=== PATIENT | male | born 1980 | race Caucasian/White ===

== ENCOUNTER 2019-05-11 13:23 | Emergency (ER) | payer OTHER, SELFPAY ==
[2019-05-11 13:25] VITALS: BP 136/92; PULSE 91; RESP 16; TEMP 36.6; O2SAT 97; BMI 26.3
--- NOTE | 2019-05-11 13:35 | RAD_ITS ---
STUDY: X-RAY - LEFT HAND, ATTENTION LEFT THUMB. REASON FOR EXAM: Male, 38 years old. Injury to the distal aspect of the thumb. TECHNIQUE: 3 view(s) of the finger were obtained. COMPARISON: None. FINDINGS: Normal metacarpal head. Normal metacarpophalangeal joint. Normal proximal phalanx. Normal distal phalanx. Normal distal interphalangeal joint. Soft tissue injury and partial amputation overlying the distal phalanx of the thumb. RAD/Finger(s) Min 2 Views IMPRESSION: No bony abnormality is seen. Soft tissue amputation overlying the distal portion of the distal phalanx of the thumb. Electronically Signed: Blaine Agee, at 14:04 EDT , Service support ,
--- NOTE | 2019-05-11 15:10 | ED.DCSUM_ITS ---
- ER Visit Summary Date of Service: 05/11/19 Chief Complaint: Trauma to left thumb History of Present Illness: The patient is a [address] Cortes. He is right-hand dominant. 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 His tetanus is up-to-date. He reports that just prior to coming emergency department he caught his left thumb and a piece of machinery. He has a sharp pain is 10-10 with moving it at 10 at rest. He denies any other injuries or complaints. Physical Examination: Vitals: Stable. Afebrile. General: Well-nourished and well-developed. Head: Normocephalic atraumatic. Neck: Supple, no lymphadenopathy. No JVD. Nontender. Cardiovascular: Regular rate and rhythm. No murmurs. Respiratory: No respiratory distress. Clear to auscultation bilaterally. Abdominal: Soft, nontender, nondistended, normal bowel sounds. No guarding, rebound, or peritoneal signs. Back: Nontender. Extremities: Left thumb: The distal third of the nailbed is amputated. The nail is avulsed. There is no skin for coverage. Skin: Normal color, no rash. Neurologic: Alert and oriented ?3. Cranial nerves II through XII are intact. Normal strength and sensation. Psych: Normal affect. Test Results: Clinical Impression(s) from Imaging Studies Finger X-Ray 05/11/19 13:35 IMPRESSION: No bony abnormality is seen. Soft tissue amputation overlying the distal portion of the distal phalanx of the thumb. Electronically Signed: Blaine Cyndie, at 14:04 EDT , Service support , Emergency Department Course and Treatment: Patient had a digital block performed and was treated with Keflex. He had a dressing placed was placed in AlumaFoam splint. Treatment Plan: The patient was discussed with Dr. Galaviz. She did offer to care for this, but it would require amputation at the PIP joint. Patient understands that he could be transferred to see a hand surgeon to potentially salvage length to his thumb. He would prefer to do this. 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 He was then discussed with Dr. Grewal at [facility], his hospital of choice, and he asked that the wound be irrigated and he will take him to the operating room tomorrow. The patient is happy with this plan. Disposition: To home in improved and stable condition. Impression: 1. Left thumb fingertip amputation. Procedure note: Patient had his thumb anesthetized with a digital block with bupivacaine. It was washed with chlorhexidine soap. It was then irrigated with 250 cc of normal saline. Xeroform gauze was used to cover this. A bulky dressing with Kerlix was then placed. The patient tolerated this well. This note was generated with [employer] dictation software. It may contain incorrect words, spelling, and punctuation that were not noted in review of the chart prior to signing ED Disposition - Plan for ED Patient: Instructions: FINGER TIP AMPUTATION, Open Treatment Prescriptions: Cefadroxil [Duricef] 500 mg PO BID #14 capsule Oxycodone HCl/Acetaminophen [Percocet 5/325] 1 tablet PO Q6H PRN PRN 5 Days #20 tablet PRN Reason: Pain Additional Instructions: Dr. Grewal has you scheduled for surgery tomorrow morning at 9:30. The address for the [facility] is [address] [place] [address]. Do not eat or drink anything after midnight. The number to Dr. Grewal office is .
[2019-05-11] MEDS: oxyCODONE 5 MG Tablet 10 MG PO (16:02)
[2019-05-11] MEDS: Cephalexin 500 MG Capsule PO (16:03)
[2019-05-11] MEDS: Bupivacaine Mpf 0.5% 30 ML VIAL INFILT (16:06)
[2019-05-11 17:39] VITALS: BP 136/70; PULSE 61; RESP 14
== END 2019-05-11 17:41 | disposition home or self-care (01) ==
PROVIDERS: Emergency Provider Emergency Medicine; Family Provider Internal Medicine; PCP Internal Medicine
DX: S68.022A Partial traumatic metacarpophalangeal amputation of left thumb, initial encounter (principal); W31.9XXA Contact with unspecified machinery, initial encounter; Y93.9 Activity, unspecified; Y92.89 Other specified places as the place of occurrence of the external cause; Y99.0 Civilian activity done for income or pay; Z72.0 Tobacco use
CPT/HCPCS: 73140; 99283

== ENCOUNTER 2019-06-18 17:08 | Emergency (ER) | payer SELFPAY ==
[2019-06-18 17:09] VITALS: BP 181/101; PULSE 103; PULSE 106; RESP 22; TEMP 36.4; O2SAT 95; BMI 27.7
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
--- NOTE | 2019-06-18 17:25 | NURSING ---
CALLED [facility] FOR TRAUMA TRANSFER TO [place]. TALKED TO DEEDEE
[2019-06-18] MEDS: fentaNYL 100 MCG/2 ML Ampul 50 MCG IV (17:28)
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
--- NOTE | 2019-06-18 17:37 | NURSING ---
ACCEPTED AT [facility] ACCEPTING DR BRAN RODRIGUES NURSE TO NURSE WAS THE TRANSFER LINE AT [phone]
[2019-06-18] MEDS: Cefazolin 1 GM/50 ML BAG IV (17:44)
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
--- NOTE | 2019-06-18 17:48 | NURSING ---
CALLED [facility] FOR TRANSPORT. ETA IS 45 TO 60 MIN
[2019-06-18 18:16] VITALS: BP 151/99; PULSE 108; RESP 18; O2SAT 95
== END 2019-06-18 18:20 | disposition short-term general hospital (02) ==
PROVIDERS: Emergency Provider Emergency Medicine; Family Provider Internal Medicine; PCP Internal Medicine
DX: S06.0X0A Concussion without loss of consciousness, initial encounter (principal); S01.81XA Laceration without foreign body of other part of head, initial encounter; S00.81XA Abrasion of other part of head, initial encounter; S20.419A Abrasion of unspecified back wall of thorax, initial encounter; S40.812A Abrasion of left upper arm, initial encounter; S40.811A Abrasion of right upper arm, initial encounter; S80.812A Abrasion, left lower leg, initial encounter; S80.811A Abrasion, right lower leg, initial encounter; V86.56XA Driver of dirt bike or motor/cross bike injured in nontraffic accident, initial encounter; Y93.I9 Activity, other involving external motion; Y92.410 Unspecified street and highway as the place of occurrence of the external cause; Y99.8 Other external cause status; Z72.0 Tobacco use
CPT/HCPCS: 71045; 72170; 96365; 96375; 99284; J7030; J7050; A4216

== ENCOUNTER 2020-05-06 19:20 | Emergency (ER) | payer MEDICAID, SELFPAY ==
[2020-05-06 19:21] VITALS: BP 135/80; PULSE 103; RESP 18; TEMP 37.2; O2SAT 97; BMI 27.2
--- NOTE | 2020-05-06 19:25 | ED.RN ---
pt taking nonsense. Everytime this nurse tries to ask a question patient will start talking over and not answer questions. hard to assess. upset when staff attempted to calm down and put hand on shoulder. pt said that is how you piss me off. refused to put wrist band on.
--- NOTE | 2020-05-06 19:45 | EKG12_ITS ---
Test Reason : MENTAL HEALTH Blood Pressure : / mmHG Vent. Rate : 082 BPM Atrial Rate : 082 BPM P-R Int : 138 ms QRS Dur : 102 ms QT Int : 386 ms P-R-T Axes : 086 079 082 degrees QTc Int : 450 ms Normal sinus rhythm Normal ECG Confirmed by MARTINEZ CHURCH, KEYONA ([id number]), material expeditor SAMEER BENNETT ([id number]) on 05/10/2020 1:09:01 PM Referred By: TAYLOR Confirmed By:KEYONA HENRIQUEZ MD
--- NOTE | 2020-05-06 19:52 | ED.DCSUM_ITS ---
- ER Visit Summary Date of Service: 05/06/20 Chief Complaint: Abnormal behavior History of Present Illness: The patient is a 39 M who presents with abnormal behavior that was noticed today. Apparently the patient had similar symptoms a couple days ago and his mom was willing to take him home and monitor him. Today however he became worse. Patient has a history of schizophrenia and has been noncompliant with his medications. Patient is a very poor historian. Patient appears to be talking to another person in the room that is not there. Patient refuses to answer any of my questions. Patient will not talk to me. Physical Examination: Vital signs are stable. Patient is afebrile. Patient is in no acute distress. Patient is sitting comfortably in the room. Patient appears to have auditory hallucinations. Patient is talking to another person even though there is no one else in the room. Patient will not answer any questions. Patient will not admit to or deny any suicidal ideations or homicidal ideations. Patient appears to be agitated and angry. Test Results: EKG showed normal sinus rhythm with a rate of 82. There are no acute ST or T wave changes. CBC was normal. Comprehensive metabolic profile showed a potassium of 3.0 but was otherwise within normal limits. Serum alcohol level was normal. Urine tox screen is pending. Emergency Department Course and Treatment: Patient was given injections of Ativan and Haldol. Patient was still agitated and attempted to leave the emergency department. Patient was restrained. Patient was given injection of Geodon. Patient is resting comfortably. general utility worker was unable to evaluate the patient and talk with him. When the patient is more awake, crisis will evaluate the patient. Disposition: Care of the patient was turned over to the oncoming physician. Patient will likely be transferred to psychiatric facility Impression: 1. Acute psychosis 2. Schizophrenia This note was generated with [employer] software. It may contain incorrect words, spelling, and punctuation that were not noted in review of the chart prior to signing ED Disposition - Plan for ED Patient: Diagnosis: Acute psychosis, Schizophrenia Referrals: Coretta Cortes MD [Primary Care Provider] -
[2020-05-06] MEDS: LORazepam 2 MG/ML Syringe IV (19:55)
[2020-05-06] MEDS: Haloperidol Lactate 5 MG/ML Vial 2 MG IM (19:55)
--- NOTE | 2020-05-06 19:56 | CM.ED ---
Social Work Consult: Mental Health Informant: Dr. Sanchez Met with patient in room to attempt to complete assessment. While this social group worker entered the room patient states I don't want to live in the past, I want to live in the future. This social group worker attempted to introduce self and social group worker role. Patient continues to speak nonsensical. Patient states I'm retired f you. This social group worker attempted to speak directly with patient, patient continues to not make eye contact or acknowledge this social group worker in the room. Patient then stands up and attempts to leave the room. This social group worker attempts to redirect patient, nursing staff then speaks with patient along with Azalea ANDERSON. Patient then goes back into room after multiple directions given to do so. Patient is pink slipped by Azalea ANDERSON to [facility]. Per [place] ANDERSON patient has been ramping up over the past few days. Apparently patient was wondering yesterday and police had to escort patient back to patient mother's home, where patient lives. Patient mother then took responsibility for patient. Azalea ANDERSON stating that patient mother called police today as patient was getting worse. Azalea ANDERSON reporting that patient has diagnosis of Schizophrenia and Bi-polar. Per medical chart patient is noted to have Klonopin and Seroquel on medication list. Patient continues with nonsensical statements and then states I need to do a push-up and gets down and does a push-up. Medical team able to direct patient into bed. Collaborated with Dr. Sanchez. Dr. Sanchez also states that patient did not answer any direct questions. When medical team attempts to medication patient via injection patient states pock my finger tips, I need air. Telephone call to patient mother, Pedro Norwood, voicemail left requesting return phone call. Recommending inpatient psychiatric placement for stabilization, pending medical clearance. Will continue to follow as needed. Yanet CHAUDHARY, RADHA
--- NOTE | 2020-05-06 20:15 | ED.RN ---
Pt walked out of the room and tried to leave department, attempted to redirect patient. pt became violent and started yelling. Radha Waterman HRO and 3 staff members assisted patient back to room 6 and into the bed. Pt still yelling and threatening staff. Pt will not let staff patient touch him. pt placed in 4 point restraints at 2019, Dr Sanchez aware. Patient then medicated per JAN.
[2020-05-06] MEDS: Ziprasidone IM 20 MG/ML VIAL IM (20:28)
[2020-05-06 21:15] LABS: Absolute Lymphocyte Count 1.91 X10^3/uL (0.83-4.51); Absolute Neutrophil Count 4.8 X10^3/uL (2.0-7.7); Basophil# 0.03 X10^3/uL; Basophil% 0.4 % (0-1); Eosinophils% 2.5 % (0-5); Hematocrit 41.3 % (40-54); Hemoglobin 13.3 g/dL (13.0-16.5); Lymphocyte # 1.91 X10^3/ul (4.0); Lymphocyte % 23.6 % (19-41); Mean Corp Hgb Conc 32.2 g/dL (32-36); Mean Corpuscular Hgb 29.6 pg (27.0-32.0); Mean Corpuscular Volume 91.8 fL (80-94); Monocyte# 1.09 X10^3/uL; Monocyte% 13.5 % (0-10); NRBC Flagged by Analyzer 0 % (0-5); Neutrophil # 4.83 X10^3/uL (2.7-7.7); Neutrophil % 59.6 % (47-70); Platelet Count 354 K/mm3 (150-450); RBC Distribution Width CV 13.4 % (11.6-14.6); White Blood Count 8.1 K/mm3 (4.4-11.0)
[2020-05-06 21:32] LABS: ALB/GLOB Ratio 1.1 RATIO (0.9-2.4); AST(SGOT) 28 U/L (15-37); Alanine Aminotransfer ALT/SGPT 37 U/L (16-61); Albumin, Serum 3.6 g/dL (3.2-5.0); Alkaline Phosphatase 73 U/L (45-117); Anion Gap 8 (5-15); BUN 11 mg/dL (7-18); BUN/Creat Ratio 13.6 RATIO (10-20); Calcium,Total 8.3 mg/dL (8.5-10.1); Chloride 103 mmol/L (98-107); Creatinine, Serum 0.81 mg/dL (0.70-1.30); EST Glomerular Filtration Rate 111 mL/min (>60); Est Glom Filt Rate - Afr Amer 134 mL/min (>60); Estimated Creatinine Clearance 123.92 ml/min; Globulin 3.2 g/dL (2.2-4.2); Glucose 101 mg/dL (74-106); Protein, Total 6.8 g/dL (6.4-8.2); Sodium Level 139 mmol/L (136-145)
[2020-05-06 21:48] VITALS: BP 137/80; PULSE 74; RESP 15; O2SAT 98
--- NOTE | 2020-05-06 22:52 | ED.RN ---
pt mother called for update, update given to mom
[2020-05-07] VITALS (9 sets, daily range): BP systolic 104–148; BP diastolic 56–95; PULSE 78–95; RESP 14–18; TEMP 37.1; O2SAT 95–100
[2020-05-07] MEDS: Ziprasidone IM 20 MG/ML VIAL IM ×2 (02:49→17:43)
[2020-05-07 03:24] LABS: Amphetamine Urine VISTA POSITIVE (<1000 ng/mL); Barbiturate Urine VISTA NEGATIVE (< 200 ng/mL); Benzodiazepine Urine VISTA NEGATIVE (< 200 ng/mL); Cocaine Urine VISTA NEGATIVE (< 300 ng/mL); Ecstacy Urine VISTA NEGATIVE (< 500 ng/mL); Methadone Urine VISTA NEGATIVE (< 300 ng/mL); PCP Urine VISTA NEGATIVE (< 25 ng/mL); THC Urine VISTA POSITIVE (< 50 ng/mL); Vista UDS pH Range 6
--- NOTE | 2020-05-07 03:36 | ED.RN ---
pt started to rip heart monitor off and began to become increasingly agitated at 0240. geodon given at 0249. water given. pt remains in restraint on left wrist. pt is now resting with eyes closed, breathing even and unlabored.
--- NOTE | 2020-05-07 07:30 | ED.RN ---
pt continues to pace in room. pt is cooperative at present time. slightly agitated. requested coffee-given. meal tray in room. pt eating
[2020-05-07] MEDS: Acetaminophen 500 MG Tablet 1000 MG PO ×2 (10:26→15:47)
--- NOTE | 2020-05-07 12:30 | ED.RN ---
pt becoming more and more agitated. pt pacing room. has stripped sheets and blankets off bed. scrubbed bed with hand soap. pt refuses to have vital signs taken. pt continues talking to the wall at times. pt unappropriate
[2020-05-07] MEDS: LORazepam 1 MG Tablet 2 MG PO (12:42)
--- NOTE | 2020-05-07 12:43 | ED.RN ---
RIK VIZCAINO ECT REMOVED FROM ROOM. PT AGREES TO TAKE MEDICATION. ATIVAN 2 MG PO GIVEN
--- NOTE | 2020-05-07 13:38 | ED.RN ---
PT REQUESTED PEANUT BUTTER AND CRACKERS. PT COOPERATIVE AND SAYS PLEASE AND THANK YOU
--- NOTE | 2020-05-07 14:20 | ED.RN ---
pt's mother called update was given, reports new cell phone number [phone]
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
[2020-05-07] MEDS: clonazePAM 1 MG Tablet PO (16:51)
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
[2020-05-07] MEDS: Fluticasone 0.05% 1 SPRAY NASAL.SRY NASAL (17:43)
--- NOTE | 2020-05-07 18:08 | ED.RN ---
[facility] been accepted at [facility]
--- NOTE | 2020-05-07 18:24 | ED.RN ---
breezy church from [facility] called with admition status. updated that pt has been medicated, voluntarily and has been cooperative for most of the day although bizarre and agitated at time. pt accepted by [facility] contacted
== END 2020-05-07 19:20 ==
PROVIDERS: Emergency Provider Emergency Medicine; PCP Internal Medicine
DX: F20.9 Schizophrenia, unspecified (principal); Z91.14 Patient's other noncompliance with medication regimen
CPT/HCPCS: 80053; 80307; 80320; 85025; 93005; 96372; 96374; 99285; G0480; J3486

== ENCOUNTER 2020-05-24 15:11 | Emergency (ER) | payer BC, MEDICAID, SELFPAY ==
[2020-05-24 15:13] VITALS: BP 126/87; PULSE 110; RESP 17; TEMP 36.7; O2SAT 98; BMI 25.8
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
[2020-05-24] MEDS: LORazepam 1 MG Tablet PO (17:25)
== END 2020-05-24 17:37 | disposition home or self-care (01) ==
LOC: ED 17:22
PROVIDERS: Emergency Provider Student in an Organized Health Care Education/Training Program; PCP Internal Medicine
DX: G47.00 Insomnia, unspecified (principal); F31.9 Bipolar disorder, unspecified; F17.200 Nicotine dependence, unspecified, uncomplicated
CPT/HCPCS: 99282